=== PATIENT | male | born 1950 | race Caucasian/White ===

== ENCOUNTER 2024-12-28 07:18 | Inpatient (IN) ==
--- NOTE | 2024-12-28 07:41 | Emergency Department Note ---
Impression & Plan COPD exacerbation, Influenza A, Elevated troponin ED Provider Note NAME: LAKE UNGER AGE: 74 SEX: M : 1950 ARRIVES VIA: Walk-In INFORMANT: Patient ED PROVIDER(S): Cecilio Burris DO CHIEF COMPLAINT: Shortness of breath HPI: Patient is a 74-year-old male with a past medical history of asthma and COPD per who presents to the ER and provides additional history. Patient notes the symptoms started yesterday with cough congestion and shortness of breath. He has been bringing up green to yellow phlegm. Denies any recorded fevers. Admits to shortness of breath with any movement. Denies any chest pain. No belly pain. No nausea vomiting or diarrhea. He notes he is using his inhalers at home with no improvement. Denies any other exacerbating or remitting factors. No sick contacts that he is aware of. ADDITIONAL HISTORY OBTAINED: Per HPI Chronic Medical/Social Conditions Affecting Care: Per HPI PAST MEDICAL HISTORY:See Below PAST SURGICAL HISTORY:See Below FAMILY HISTORY:See Below SOCIAL HISTORY:See Below HOME MEDICATIONS:See Below ALLERGIES:See Below VITALS:See Below PHYSICAL EXAMINATION: GENERAL: Sitting up in bed, alert, well appearing, well nourished, no distress, non-toxic EYE EXAM: normal conjunctiva. OROPHARYNX: mucous membranes are moist LUNGS: Wheezing bilaterally with poor air movement. Normal chest wall mechanics HEART: no murmurs, S1 normal and S2 normal ABDOMEN: abdomen soft, non-tender, normo-active bowel sounds, no masses, no rebound or guarding. UPPER EXTREMITIES: upper extremities are grossly normal. LOWER EXTREMITIES: No pitting edema. Calves are equal bilaterally NEURO EXAM: Normal sensorium, cranial nerves II-XII grossly intact, normal speech, no gross weakness of arms, no gross weakness of legs. MEDICAL DECISION MAKING: The patient is a 74-year-old male who presents to the ER short of breath with a cough for the above-stated complaint. IV was established and blood work was obtained. He did have diffuse wheezing bilaterally. He was given hour-long neb treatment as well as IV steroids. Labs show no significant leukocytosis and a mild anemia. BMP along LFTs bilirubin is unremarkable. Troponin slightly uptrending. Flu a positive. Remainder viral panel was negative. Chest x-ray without any focal infiltrate. Patient was updated bedside. Do not feel this low troponins consistent with ACS but rather likely demand. He was updated bedside felt significant better following the neb treatments and discussed with case with the hospitalist for further evaluation management treatment. Consults/Care Managements Discussions: Per MDM Triage Nursing notes reviewed. Limited review of prior medical records performed Vital Signs: reviewed and remarkable for htn and tachy Differential diagnosis: Differential diagnoses includes but is not limited to pneumonia, bronchitis, COPD/Asthma exacerbation, pneumothorax, pulmonary embolism, congestive heart failure, acute coronary syndrome ER treatment provided: See below Diagnostics interpreted by me include EKG and cardiac monitoring as listed below: -Cardiac Monitoring: An order was placed for continuous cardiac monitoring. The monitor shows a rate of 101 with sinus rhythm. -ECG: Sinus tachycardia rate of 107 Normal axis Poor baseline QTc 475 -Laboratory studies:Interpreted by me as stated above in MDM and shown below. Imaging studies: Xrays: As interpreted by me: Portable AP upright 1 view of the chest shows no focal infiltrate CTs show: none Procedures:none Critical Care: None Past Med/Surg History Problem List (Updated 12/28/24 @ 12:36 by Cecilio Burris DO) Elevated troponin (Acute) COPD exacerbation (Acute) Influenza A (Acute) Benign localized prostatic hyperplasia with lower urinary tract symptoms (LUTS) Elevated PSA Encounter for pre-operative examination Carpal tunnel syndrome on both sides Arthritis of both hands Medical History Arthritis of both hands Asthma inhaler Chronic obstructive pulmonary disease inhaler Diabetes mellitus, type 2 NIDDM History of Holter monitoring 06/2022, no issues " just wanted to check", f/u PCP Dr. Whittaker, [facility] Hypertension Weight loss "unexplained weight loss of 40 pounds, investigating" Surgical History History of esophagogastroduodenoscopy (EGD) 08/2022 @ [facility] Hx of colonoscopy 08/2022 @ [facility] Hx of nasal polypectomy Family History Other No family history of adverse response to anesthesia Social History Smoking Status: Former smoker Second Hand Exposure: No; Do You Dip or Chew Tobacco: No; Hx Alcohol Use: Yes ("3-4 oz of a mixed drink a day") Alcohol type: hard liquor Hx Substance Use: No Preferred Language: Greenlandic Communication Ability: Effective [employer] Recausticizing Operator Required: No Beliefs That Will Affect Care: None Current Living Situation: Spouse Feels Safe at Home: Yes Assistive Devices: Denture - Upper and Glasses Allergies Allergies Allergy/AdvReac Type Severity Reaction Status Date / Time No Known Allergies Allergy Verified 12/28/24 10:19 Home Meds Home Medications Medication Instructions Recorded Confirmed fluticasone 250 mcg-salmeterol 50 1 inh inhalation BID 07/12/22 12/28/24 mcg/dose blistr powdr for inhalation (Advair Diskus) lisinopril 20 mg tablet 20 mg PO BID 06/11/23 12/28/24 amlodipine 10 mg tablet 10 mg PO QAM 12/28/24 12/28/24 atorvastatin 20 mg tablet 10 mg PO HS 12/28/24 12/28/24 ferrous sulfate 325 mg (65 mg 325 mg PO DAILY 12/28/24 12/28/24 iron) tablet glipizide 5 mg tablet, extended 5 mg PO QAM 12/28/24 12/28/24 release 24 hr metformin 500 mg tablet 500 mg PO BID 12/28/24 12/28/24 metoprolol succinate 50 mg 50 mg PO HS 12/28/24 12/28/24 tablet,extended release 24 hr multivitamin 1 tab PO DAILY 12/28/24 12/28/24 Results & Data (ED) Vital Signs Vital Signs - 24 hr 12/28/24 07:18 12/28/24 07:51 12/28/24 08:06 Temperature 37.0 C Temperature Source Temporal Artery Scan Pulse Rate 107 H 104 H 107 H Pulse Rate from SpO2 Sensor 105 H 107 H Respiratory Rate 18 18 21 Blood Pressure 169/98 H Blood Pressure Mean 121 Pulse Oximetry 92 99 100 Oxygen Delivery Method Room Air Sepsis Recent Fever Within 48 Hours No Sepsis New/Unexplained Change in Mental Status N/A Sepsis Action Taken by Nursing No Action Required 12/28/24 08:30 12/28/24 08:30 12/28/24 08:54 Temperature Temperature Source Pulse Rate 113 H 117 H Pulse Rate from SpO2 Sensor 113 H 120 H Respiratory Rate 24 Blood Pressure 157/88 H Blood Pressure Mean 99 Pulse Oximetry 98 93 Oxygen Delivery Method Sepsis Recent Fever Within 48 Hours Sepsis New/Unexplained Change in Mental Status Sepsis Action Taken by Nursing 12/28/24 09:00 12/28/24 09:12 12/28/24 09:27 Temperature Temperature Source Pulse Rate 108 H 115 H Pulse Rate from SpO2 Sensor 108 H 115 H Respiratory Rate 29 H 28 H Blood Pressure 148/92 H Blood Pressure Mean 112 Pulse Oximetry 92 94 Oxygen Delivery Method Room Air Sepsis Recent Fever Within 48 Hours Sepsis New/Unexplained Change in Mental Status Sepsis Action Taken by Nursing 12/28/24 09:30 12/28/24 09:36 12/28/24 10:00 Temperature Temperature Source Pulse Rate 109 H 107 H Pulse Rate from SpO2 Sensor 110 H 108 H Respiratory Rate 27 H 27 H Blood Pressure 149/93 H Blood Pressure Mean 107 Pulse Oximetry 94 94 Oxygen Delivery Method Room Air Room Air Sepsis Recent Fever Within 48 Hours Sepsis New/Unexplained Change in Mental Status Sepsis Action Taken by Nursing 12/28/24 10:00 12/28/24 10:18 12/28/24 10:30 Temperature Temperature Source Pulse Rate 112 H Pulse Rate from SpO2 Sensor 113 H Respiratory Rate 25 H Blood Pressure 152/88 H 142/91 H Blood Pressure Mean 107 106 Pulse Oximetry 97 Oxygen Delivery Method Room Air Sepsis Recent Fever Within 48 Hours Sepsis New/Unexplained Change in Mental Status Sepsis Action Taken by Nursing 12/28/24 10:33 12/28/24 10:33 12/28/24 11:00 Temperature Temperature Source Pulse Rate 110 H 106 H 118 H Pulse Rate from SpO2 Sensor 106 H 119 H Respiratory Rate 27 H 22 Blood Pressure Blood Pressure Mean Pulse Oximetry 95 98 Oxygen Delivery Method Room Air Room Air Sepsis Recent Fever Within 48 Hours Sepsis New/Unexplained Change in Mental Status Sepsis Action Taken by Nursing 12/28/24 11:00 Temperature Temperature Source Pulse Rate Pulse Rate from SpO2 Sensor Respiratory Rate Blood Pressure 155/108 H Blood Pressure Mean 122 Pulse Oximetry Oxygen Delivery Method Sepsis Recent Fever Within 48 Hours Sepsis New/Unexplained Change in Mental Status Sepsis Action Taken by Nursing Laboratory Data 12/28/24 07:40 12/28/24 07:40 Lab Results 12/28/24 12/28/24 12/28/24 Range/Units 07:39 07:40 09:24 WBC 5.87 (4.8-10.8) K/ul RBC 4.64 L (4.70-6.10) M/uL Hgb 13.6 L (14.0-18.0) g/dl Hct 39.8 L (42.0-52.0) % MCV 85.8 (80.0-100.0) fL MCH 29.3 (25.0-34.0) pg MCHC 34.2 (32.0-36.0) g/dL RDW Std Deviation 40.8 (36.4-46.3) fL RDW Coeff of Osmar 13.2 (11.5-14.5) % Plt Count 229 (130-400) K/uL MPV 10.0 (9.4-12.4) fL Immature Gran % (Auto) 0.5 % Neut % (Auto) 72.4 % Lymph % (Auto) 9.2 % [place] % (Auto) 16.9 % Eos % (Auto) 0.3 % Baso % (Auto) 0.7 % Neut # (Auto) 4.25 (1.40-6.50) K/uL Lymph # (Auto) 0.54 L (1.20-3.40) K/uL [place] # (Auto) 0.99 H (0.11-0.59) K/uL Eos # (Auto) 0.02 (0.00-0.50) K/uL Baso # (Auto) 0.04 (0.00-0.20) K/uL Immature Gran # (Auto) 0.03 (0.01-0.20) K/uL Sodium 137 (136-145) mmol/L Potassium 4.1 (3.5-5.1) mmol/L Chloride 102 (98-107) mmol/L Carbon Dioxide 26 (21-32) mmol/L Anion Gap 9 (3-11) BUN 20 (6-23) mg/dl Creatinine 1.24 (0.6-1.4) mg/dl Est Cr Clr Drug Dosing 48.1 ml/min eGFR 61.39 BUN/Creatinine Ratio 16.1 (10-20) Glucose 245 H (70-99(Fasting)) mg/dl Calcium 9.5 (8.6-10.3) mg/dl Total Bilirubin 0.4 (0.2-1.0) mg/dl AST 31 (13-39) U/L ALT 22 (7-52) U/L Alkaline Phosphatase 112 H (34-104) U/L Troponin I High Sens 27.8 H 33.2 H (0-20) pg/ml Total Protein 7.6 (6.0-8.3) gm/dl Albumin 3.7 (3.4-5.0) gm/dl Globulin 3.9 (2.5-4.0) gm/dl Albumin/Globulin Ratio 0.9 (0.9-2) Lipase 32 (11-82) U/L Nasal Influ A H1 2008 PCR DETECTED A (NotDetected) Adenovirus (PCR) Not Detected (NotDetected) B. pertussis DNA (PCR) Not Detected (NotDetected) B.parapertussis DNA PCR Not Detected (NotDetected) C. pneumoniae DNA (PCR) Not Detected (NotDetected) Coronavirus OC43 (PCR) Not Detected (NotDetected) Coronavirus HKU1 (PCR) Not Detected (NotDetected) Coronavirus 229E (PCR) Not Detected (NotDetected) SARS-CoV-2 (PCR) Not Detected (NotDetected) Coronavirus NL63 (PCR) Not Detected (NotDetected) Human Metapneumovir PCR Not Detected (NotDetected) Influenza Type B (PCR) Not Detected (NotDetected) M. pneumoniae (PCR) Not Detected (NotDetected) Parainfluenza 1 (PCR) Not Detected (NotDetected) Parainfluenza 2 (PCR) Not Detected (NotDetected) Parainfluenza 3 (PCR) Not Detected (NotDetected) Parainfluenza 4 (PCR) Not Detected (NotDetected) RSV (PCR) Not Detected (NotDetected) Entero/Rhino (PCR) Not Detected (NotDetected) Administered Medications Discontinued Medications Albuterol (Albut/Ipratrop 3mg/0.5mg Neb 3 Ml Vial) 9 ml NEB NOW STA; Protocol Stop: 12/28/24 07:39 Last Admin: 12/28/24 07:46 Dose: 9 ml Documented By: TOMMIE Methylprednisolone (Methylprednisolone 125 Mg/2 Ml Vial) 40 mg IV NOW STA Stop: 12/28/24 07:39 Last Admin: 12/28/24 07:46 Dose: 40 mg Documented By: TOMMIE Imaging Data Radiologist's Impression: Chest X-Ray 12/28/24 07:38 EXAM: XR chest 1V portable CLINICAL HISTORY: CHEST PAIN. TECHNIQUE: An X-ray image of the chest is obtained in AP projection. COMPARISON: No prior studies are available for comparison. FINDINGS: Pulmonary Parenchyma: Slightly hyperinflated both lungs with flattening of both hemidiaphragm suggesting mild emphysematous changes. Bilateral basal increase interstitial lung markings suggest chronic lung changes. Left apical haziness which may be positional. No evidence of consolidation, collapse, or focal opacities. No pulmonary nodules are identified. No evidence of pleural effusion or pleural thickening. Heart and Mediastinum: Heart size and shape are normal. No mediastinal widening or masses. No hilar or mediastinal lymphadenopathy. Bony Thorax: Bony thorax appears intact without fractures or deformities. Soft Tissues: Soft tissues overlying the chest wall are unremarkable. IMPRESSION: 1. Slightly hyperinflated both lung with flattening of both hemidiaphragm suggesting mild emphysematous changes. 2. Bilateral mainly basal increase interstitial lung markings suggesting chronic lung changes., Advise CT for further evaluation if clinically warranted. Electronically signed by Elvira Sabillon 12-28-2024 08:55 AM Discharge Plan Visit Data Chief Complaint: Respiratory Problems Stated Complaint: CAN'T BREATHE,COUGHING ED Provider: Cecilio Burris Discharge Problem: COPD exacerbation, Influenza A, Elevated troponin Forms Stand Alone Forms: My [facility] [place] [facility] Prescriptions Prescriptions: No Action fluticasone propion-salmeterol [Advair Diskus] 250-50 mcg/dose Blister With Device 1 inh INHALATION BID lisinopril 20 mg Tablet 20 mg PO BID multivitamin Tablet 1 tab PO DAILY metformin 500 mg tablet 500 mg PO BID atorvastatin 20 mg tablet 10 mg PO HS metoprolol succinate 50 mg tablet extended release 24 hr 50 mg PO HS Rx Instructions: Per pt he recently started taking it only at bedtime. glipizide 5 mg tablet extended release 24hr 5 mg PO QAM amlodipine 10 mg tablet 10 mg PO QAM ferrous sulfate 325 mg (65 mg iron) Tablet 325 mg PO DAILY Referrals Referrals: Gali Whittaker [Primary Care Provider] -
[2024-12-28] MEDS: ALBUT/IPRATROP 3MG/0.5MG NEB 3 ML VIAL NEB STA (07:46)
[2024-12-28] MEDS: methylPREDNISolone 125 MG/2 ML VIAL IV STA (07:46)
[2024-12-28 07:57] LABS: Basophils # (auto) 0.04 K/uL (0.00-0.20); Basophils % (auto) 0.7 %; Eosinophils # (auto) 0.02 K/uL (0.00-0.50); Eosinophils % (auto) 0.3 %; Hematocrit (blood only) 39.8 % (42.0-52.0); Hemoglobin 13.6 g/dl (14.0-18.0); Immature Granulocytes # (auto) 0.03 K/uL (0.01-0.20); Immature Granulocytes % (auto) 0.5 %; Lymphocytes # (auto) 0.54 K/uL (1.20-3.40); Lymphocytes % (auto) 9.2 %; Mean Corpuscular Hemoglobin 29.3 pg (25.0-34.0); Mean Corpuscular Hgb Conc 34.2 g/dL (32.0-36.0); Mean Corpuscular Volume 85.8 fL (80.0-100.0); Monocytes # (auto) 0.99 K/uL (0.11-0.59); Monocytes % (auto) 16.9 %; Neutrophils # (auto) 4.25 K/uL (1.40-6.50); Neutrophils % (auto) 72.4 %; Platelet Count 229 K/uL (130-400); RDW Coefficient of Variation 13.2 % (11.5-14.5); RDW Standard Deviation 40.8 fL (36.4-46.3); Red Blood Count 4.64 M/uL (4.70-6.10); White Blood Count 5.87 K/ul (4.8-10.8)
[2024-12-28 08:23] LABS: Albumin Globulin Ratio 0.9 (0.9-2); Albumin Level 3.7 gm/dl (3.4-5.0); BUN Creatinine Ratio 16.1 (10-20); Bilirubin,Total 0.4 mg/dl (0.2-1.0); Calcium 9.5 mg/dl (8.6-10.3); Creatinine Clr Calc Pharmacy 48.1 ml/min; Globulin 3.9 gm/dl (2.5-4.0); Potassium 4.1 mmol/L (3.5-5.1); Total Protein 7.6 gm/dl (6.0-8.3)
[2024-12-28 08:28] LABS: Troponin I High Sensitivity 27.8 pg/ml (0-20)
[2024-12-28 08:47] LABS: Adenovirus PCR Not Detected (NotDetected); Bordetella parapertussis PCR Not Detected (NotDetected); Bordetella pertussis PCR Not Detected (NotDetected); Chlamydia pneumoniae PCR Not Detected (NotDetected); Coronavirus 229E PCR Not Detected (NotDetected); Coronavirus CoV-2 (COVID19)PCR Not Detected (NotDetected); Coronavirus HKU1 PCR Not Detected (NotDetected); Coronavirus NL63 PCR Not Detected (NotDetected); Coronavirus OC43PCR Not Detected (NotDetected); Human Metapneumovirus PCR Not Detected (NotDetected); Influenza A (H1 2009) PCR DETECTED (NotDetected); Influenza B PCR Not Detected (NotDetected); Mycoplasma pneumoniae PCR Not Detected (NotDetected); Parainfluenza Virus 1 PCR Not Detected (NotDetected); Parainfluenza Virus 2 PCR Not Detected (NotDetected); Parainfluenza Virus 3 PCR Not Detected (NotDetected); Parainfluenza Virus 4 PCR Not Detected (NotDetected); Respiratory Syncytial VirusPCR Not Detected (NotDetected); Rhinovirus/Enterovirus PCR Not Detected (NotDetected)
--- NOTE | 2024-12-28 08:55 | XRay Report ---
EXAM: XR chest 1V portable CLINICAL HISTORY: CHEST PAIN. TECHNIQUE: An X-ray image of the chest is obtained in AP projection. COMPARISON: No prior studies are available for comparison. FINDINGS: Pulmonary Parenchyma: Slightly hyperinflated both lungs with flattening of both hemidiaphragm suggesting mild emphysematous changes. Bilateral basal increase interstitial lung markings suggest chronic lung changes. Left apical haziness which may be positional. No evidence of consolidation, collapse, or focal opacities. No pulmonary nodules are identified. No evidence of pleural effusion or pleural thickening. Heart and Mediastinum: Heart size and shape are normal. No mediastinal widening or masses. No hilar or mediastinal lymphadenopathy. Bony Thorax: Bony thorax appears intact without fractures or deformities. Soft Tissues: Soft tissues overlying the chest wall are unremarkable. IMPRESSION: 1. Slightly hyperinflated both lung with flattening of both hemidiaphragm suggesting mild emphysematous changes. 2. Bilateral mainly basal increase interstitial lung markings suggesting chronic lung changes., Advise CT for further evaluation if clinically warranted. Electronically signed by Elvira Sabillon 12-28-2024 08:55 AM
--- NOTE | 2024-12-28 11:20 | History & Physical Report ---
Date of Service December 28, 2024 Assessment & Plan (1) Diabetes mellitus, type 2: (2) Hypertension: (3) Chronic obstructive pulmonary disease: (4) Influenza A: (5) COPD exacerbation: Plan The patient is a 74-year-old male with a past medical history of COPD, asthma, HTN, HLD, DM2 who presented to the ED on 12/28/2024 with complaints of shortness of breath x 2 days. Found to be flu A positive Assessment and plan: Influenza A COPD vs. asthma exacerbation: Chest x-ray without any evidence of pneumonia, check procalcitonin Initiate Tamiflu, continue IV Solu-Medrol twice a day, nebulizers as needed Symptomatic treatment, continue home Advair -Will add doxy orally with hx of COPD Hx HTN/HLD: Continue amlodipine/lisinopril/statin/metoprolol Hx DM2: Hold metformin/glipizide, SSI/consult glycemic pharmacy Expect sugars to be elevated while on IV Solu-Medrol A total of 60 minutes was spent on chart review/facilitating plan of care/discussion with consultants/reviewing diagnostic data Full code DVT prophylaxis: lovenox History of Present Illness Chief Complaint: Shortness of breath, flulike symptoms Primary Care Provider: aGli Whittaker The patient is a 74-year-old male with a past medical history of COPD, asthma HT N, HLD, PAWAN, DM2 who presents to the ED on 12/28/2024 with complaints of increasing shortness of breath that started about 2 days ago. Reports home meds not helping. Reported issues being able to sleep and eat. Pt reports the dry cough and SOB started yesterday. Denies fevers - reports chills. Reports sob even with rest. Denies any chest pain or tightness. Denies n/v/d or abdominal pain. Reports using rescue inhalers at home since yesterday with no improvement. 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 Reports not eating anything over the past few days due to lack of appetite. On arrival to the ED, labs remarkable for hemoglobin 13.6, glucose 245, alk phos 112, troponin 27, 33, Respiratory panel + flu A EKG showed sinus tachycardia with fusion complexes, QTc 475 Chest x-ray showed: 1. Slightly hyperinflated both lung with flattening of both hemidiaphragm suggesting mild emphysematous changes. 2. Bilateral mainly basal increase interstitial lung markings suggesting chronic lung changes., Advise CT for further evaluation if clinically warranted. The patient was given Solu-Medrol and nebulizer in the ED and will be admitted for further management of COPD exacerbation influenza A Allergies Allergy/AdvReac Type Severity Reaction Status Date / Time No Known Allergies Allergy Verified 12/28/24 10:19 Home Medications Medication Instructions Recorded Confirmed Type fluticasone 250 mcg-salmeterol 50 1 inh inhalation BID 07/12/22 12/28/24 History mcg/dose blistr powdr for inhalation (Advair Diskus) lisinopril 20 mg tablet 20 mg PO BID 06/11/23 12/28/24 History amlodipine 10 mg tablet 10 mg PO QAM 12/28/24 12/28/24 History atorvastatin 20 mg tablet 10 mg PO HS 12/28/24 12/28/24 History ferrous sulfate 325 mg (65 mg 325 mg PO DAILY 12/28/24 12/28/24 History iron) tablet glipizide 5 mg tablet, extended 5 mg PO QAM 12/28/24 12/28/24 History release 24 hr metformin 500 mg tablet 500 mg PO BID 12/28/24 12/28/24 History metoprolol succinate 50 mg 50 mg PO HS 12/28/24 12/28/24 History tablet,extended release 24 hr multivitamin 1 tab PO DAILY 12/28/24 12/28/24 History Past Med/Surg History Problem List (Updated 12/28/24 @ 12:36 by Cecilio Burris DO) Elevated troponin (Acute) COPD exacerbation (Acute) Influenza A (Acute) Benign localized prostatic hyperplasia with lower urinary tract symptoms (LUTS) Elevated PSA Encounter for pre-operative examination Carpal tunnel syndrome on both sides Arthritis of both hands Medical History Arthritis of both hands Asthma inhaler Chronic obstructive pulmonary disease inhaler Diabetes mellitus, type 2 NIDDM History of Holter monitoring 06/2022, no issues "dr perez wanted to check", f/u PCP Dr. Whittaker, [facility] Hypertension Weight loss "unexplained weight loss of 40 pounds, investigating" Surgical History History of esophagogastroduodenoscopy (EGD) 08/2022 @ [facility] Hx of colonoscopy 08/2022 @ [facility] Hx of nasal polypectomy Family History Other No family history of adverse response to anesthesia Social History Smoking Status: Former smoker Second Hand Exposure: No; Do You Dip or Chew Tobacco: No; Hx Alcohol Use: Yes ("3-4 oz of a mixed drink a day") Alcohol type: hard liquor Hx Substance Use: No Preferred Language: Uzbek Communication Ability: Effective Job Molder Required: No Beliefs That Will Affect Care: None Current Living Situation: Spouse Feels Safe at Home: Yes Assistive Devices: Denture - Upper and Glasses Review of Systems Review of Systems: All systems reviewed & are unremarkable except as noted in HPI & below Physical Exam Constitutional: WD/WN, vitals as above Eyes: PERRL, conjunctivae normal, anicteric sclerae ENMT: external ear and nose normal, oropharynx normal Neck: trachea midline, no thyromegaly Respiratory: normal respiratory effort, lungs clear to auscultation (no wheezing on exam, clear bilaterally ) Cardiovascular: RRR, no murmur, no edema Gastrointestinal (Abdomen): normal bowel sounds, soft, nontender, no hepatosplenomegaly Musculoskeletal: no cyanosis or clubbing, extremities motor strength 5/5 Skin: no rashes, warm and dry Neurologic: PERRL, EOMI, accommodation nl, no face palsy, no dysarthria Psychiatric: A+Ox3, euthymic affect Lymphatic: no cervical or axillary lymphadenopathy Results & Data Results & Data Vital Signs (Past 12 Hours) Vital Signs Temp Pulse Resp BP Pulse Ox O2 Del Method 12/28/24 11:00 155/108 H 12/28/24 11:00 118 H 22 98 Room Air 12/28/24 10:33 106 H 27 H 95 Room Air 12/28/24 10:33 110 H 12/28/24 10:30 142/91 H 12/28/24 10:18 112 H 25 H 97 Room Air 12/28/24 10:00 152/88 H 12/28/24 10:00 107 H 27 H 94 Room Air 12/28/24 09:36 109 H 27 H 94 Room Air 12/28/24 09:30 149/93 H 12/28/24 09:27 115 H 28 H 94 Room Air 12/28/24 09:12 108 H 29 H 92 12/28/24 09:00 148/92 H 12/28/24 08:54 117 H 24 93 12/28/24 08:30 157/88 H 12/28/24 08:30 113 H 98 12/28/24 08:06 107 H 21 100 12/28/24 07:51 104 H 18 99 12/28/24 07:18 37.0 C 107 H 18 169/98 H 92 Room Air Diagnostic Findings Laboratory Results WBC 5.87 K/ul (4.8-10.8) 12/28/24 07:40 RBC 4.64 M/uL (4.70-6.10) L 12/28/24 07:40 Hgb 13.6 g/dl (14.0-18.0) L 12/28/24 07:40 Hct 39.8 % (42.0-52.0) L 12/28/24 07:40 MCV 85.8 fL (80.0-100.0) 12/28/24 07:40 MCH 29.3 pg (25.0-34.0) 12/28/24 07:40 MCHC 34.2 g/dL (32.0-36.0) 12/28/24 07:40 RDW Std Deviation 40.8 fL (36.4-46.3) 12/28/24 07:40 RDW Coeff of Osmar 13.2 % (11.5-14.5) 12/28/24 07:40 Plt Count 229 K/uL (130-400) 12/28/24 07:40 MPV 10.0 fL (9.4-12.4) 12/28/24 07:40 Immature Gran % (Auto) 0.5 % 12/28/24 07:40 Neut % (Auto) 72.4 % 12/28/24 07:40 Lymph % (Auto) 9.2 % 12/28/24 07:40 [place] % (Auto) 16.9 % 12/28/24 07:40 Eos % (Auto) 0.3 % 12/28/24 07:40 Baso % (Auto) 0.7 % 12/28/24 07:40 Neut # (Auto) 4.25 K/uL (1.40-6.50) 12/28/24 07:40 Lymph # (Auto) 0.54 K/uL (1.20-3.40) L 12/28/24 07:40 [place] # (Auto) 0.99 K/uL (0.11-0.59) H 12/28/24 07:40 Eos # (Auto) 0.02 K/uL (0.00-0.50) 12/28/24 07:40 Baso # (Auto) 0.04 K/uL (0.00-0.20) 12/28/24 07:40 Immature Gran # (Auto) 0.03 K/uL (0.01-0.20) 12/28/24 07:40 Sodium 137 mmol/L (136-145) 12/28/24 07:40 Potassium 4.1 mmol/L (3.5-5.1) 12/28/24 07:40 Chloride 102 mmol/L (98-107) 12/28/24 07:40 Carbon Dioxide 26 mmol/L (21-32) 12/28/24 07:40 Anion Gap 9 (3-11) 12/28/24 07:40 BUN 20 mg/dl (6-23) 12/28/24 07:40 Creatinine 1.24 mg/dl (0.6-1.4) 12/28/24 07:40 Est Cr Clr Drug Dosing 48.1 ml/min 12/28/24 07:40 eGFR 61.39 12/28/24 07:40 BUN/Creatinine Ratio 16.1 (10-20) 12/28/24 07:40 Glucose 245 mg/dl (70-99(Fasting)) H 12/28/24 07:40 Calcium 9.5 mg/dl (8.6-10.3) 12/28/24 07:40 Total Bilirubin 0.4 mg/dl (0.2-1.0) 12/28/24 07:40 AST 31 U/L (13-39) 12/28/24 07:40 ALT 22 U/L (7-52) 12/28/24 07:40 Alkaline Phosphatase 112 U/L (34-104) H 12/28/24 07:40 Troponin I High Sens 33.2 pg/ml (0-20) H 12/28/24 09:24 Total Protein 7.6 gm/dl (6.0-8.3) 12/28/24 07:40 Albumin 3.7 gm/dl (3.4-5.0) 12/28/24 07:40 Globulin 3.9 gm/dl (2.5-4.0) 12/28/24 07:40 Albumin/Globulin Ratio 0.9 (0.9-2) 12/28/24 07:40 Lipase 32 U/L (11-82) 12/28/24 07:40 Nasal Influ A H1 2009 PCR DETECTED (NotDetected) A 12/28/24 07:39 Adenovirus (PCR) Not Detected (NotDetected) 12/28/24 07:39 B. pertussis DNA (PCR) Not Detected (NotDetected) 12/28/24 07:39 B.parapertussis DNA PCR Not Detected (NotDetected) 12/28/24 07:39 C. pneumoniae DNA (PCR) Not Detected (NotDetected) 12/28/24 07:39 Coronavirus OC43 (PCR) Not Detected (NotDetected) 12/28/24 07:39 Coronavirus HKU1 (PCR) Not Detected (NotDetected) 12/28/24 07:39 Coronavirus 229E (PCR) Not Detected (NotDetected) 12/28/24 07:39 SARS-CoV-2 (PCR) Not Detected (NotDetected) 12/28/24 07:39 Coronavirus NL63 (PCR) Not Detected (NotDetected) 12/28/24 07:39 Human Metapneumovir PCR Not Detected (NotDetected) 12/28/24 07:39 Influenza Type B (PCR) Not Detected (NotDetected) 12/28/24 07:39 M. pneumoniae (PCR) Not Detected (NotDetected) 12/28/24 07:39 Parainfluenza 1 (PCR) Not Detected (NotDetected) 12/28/24 07:39 Parainfluenza 2 (PCR) Not Detected (NotDetected) 12/28/24 07:39 Parainfluenza 3 (PCR) Not Detected (NotDetected) 12/28/24 07:39 Parainfluenza 4 (PCR) Not Detected (NotDetected) 12/28/24 07:39 RSV (PCR) Not Detected (NotDetected) 12/28/24 07:39 Entero/Rhino (PCR) Not Detected (NotDetected) 12/28/24 07:39 Impressions Chest X-Ray 12/28/24 07:38 EXAM: XR chest 1V portable CLINICAL HISTORY: CHEST PAIN. TECHNIQUE: An X-ray image of the chest is obtained in AP projection. COMPARISON: No prior studies are available for comparison. FINDINGS: Pulmonary Parenchyma: Slightly hyperinflated both lungs with flattening of both hemidiaphragm suggesting mild emphysematous changes. Bilateral basal increase interstitial lung markings suggest chronic lung changes. Left apical haziness which may be positional. No evidence of consolidation, collapse, or focal opacities. No pulmonary nodules are identified. No evidence of pleural effusion or pleural thickening. Heart and Mediastinum: Heart size and shape are normal. No mediastinal widening or masses. No hilar or mediastinal lymphadenopathy. Bony Thorax: Bony thorax appears intact without fractures or deformities. Soft Tissues: Soft tissues overlying the chest wall are unremarkable. IMPRESSION: 1. Slightly hyperinflated both lung with flattening of both hemidiaphragm suggesting mild emphysematous changes. 2. Bilateral mainly basal increase interstitial lung markings suggesting chronic lung changes., Advise CT for further evaluation if clinically warranted. Electronically signed by Elvira Sabillon 12-28-2024 08:55 AM Supervising Physician Co-Signing Physician Notes Patient is a 74-year-old male with history of COPD, asthma, diabetes mellitus, hypertension and other medical problems presents with history of worsening shortness of breath associated with cough since 2 days duration. Patient denies any chest pain, tightness, fever, chills, nausea, vomiting, abdominal pain, diarrhea. Patient uses maintenance inhaler regularly. He admits to use his rescue inhaler more frequently over the past 2 days which did not help with his symptoms. He also reports wheezing. Please review HPI for complete details of presentation. I personally reviewed blood work and imaging studies. Troponins mildly elevated 27.8, 32.2. Procalcitonin pending. BioFire positive for influenza A. Chest x-ray suggestive of emphysematous changes, increased interstitial lung markings but no obvious signs of pneumonia. Physical Exam: Vitals signs as noted above General Appearance:Moderately built and nourished, no apparent distress Head: normocephalic, Atraumatic Eyes: normal inspection, EOMI Neck: supple, Trachea midline Respiratory/Chest: Normal breath sounds, scant wheezing, No accessory muscle use Cardiovascular: S1, S2, No murmur, tachycardia Abdomen/GI:Soft, Non tender, Bowel sounds present Extremities/Musculoskeletal:normal inspection, no edema Neurologic/Psych:AAOX3, grossly no focal neurological deficits Skin: normal color, warm Acute asthma/COPD exacerbation Secondary to influenza A infection Agree with IV Solu-Medrol, nebs, doxycycline Saturating well on room air Also started Tamiflu Hypertensive urgency Missed home medications on presentation Resume home antihypertensives Monitor BP and adjust medications as needed Troponin elevation Likely demand ischemia secondary to above Monitor I personally interviewed and examined the patient at bedside. I have reviewed the advanced practitioner's documentation on the date of service referred in note and agree with plan. Patient's care is coordinated with Grace ALCOCER. Please refer to the documentation above for details of patient's presentation and for discussion of other issues. I spent a total [id number] oordinating, documenting, and providing care for this patient excluding time spent in the performance of separately billed services or time spent by another provider/QHP.
--- NOTE | 2024-12-28 11:43 | Electrocardiogram Report ---
Test Reason : Blood Pressure : */* mmHG Vent. Rate : 107 BPM Atrial Rate : 107 BPM P-R Int : 168 ms QRS Dur : 88 ms QT Int : 356 ms P-R-T Axes : 84 51 85 degrees QTcB Int : 475 ms Poor data quality, interpretation may be adversely affected Sinus tachycardia Septal infarct , age undetermined Abnormal ECG No previous ECGs available Confirmed by Jay Graves ([id number]) on 12/28/2024 11:43:33 AM Referred By: Confirmed By: Jay Graves
[2024-12-28] MEDS ORDERED: amLODIPine BESYLATE 5 MG TAB PO SCH (12:15)
[2024-12-28] MEDS ORDERED: GLUCAGON FOR INJ 1 MG VIAL SQ PRN (14:23)
[2024-12-28] MEDS ORDERED: PHARMACY GLYCEMIC MGMT CONSULT PRN (14:23)
[2024-12-28] MEDS ORDERED: CARBOHYDRATES FOR HYPOGLYCEMIA PO PRN (14:23)
[2024-12-28] MEDS ORDERED: GLUCOSE 10 TAB/TUBE PO PRN (14:23)
[2024-12-28] MEDS ORDERED: guaiFENesin/DEXTROM SYRUP 200MG/20MG 10ML UDC PO PRN (14:23)
[2024-12-28] MEDS ORDERED: ACETAMINOPHEN 325 MG TAB PO PRN (14:23)
[2024-12-28] MEDS ORDERED: DEXTROSE 50% 50 ML SYRINGE IV PRN (14:23)
[2024-12-28] MEDS ORDERED: GLUCOSE 40% GEL 15 GM TUBE PO PRN (14:23)
--- NOTE | 2024-12-28 14:39 | Pharmacy Report ---
Pharmacy Glycemic Short Note 2 - Date of Service December 28, 2024 - Glycemic Short BSG Results (Last 24 hours): 12/28/24 07:40 Glucose 245 H OUTPATIENT ANTIDIABETIC REGIMEN: * glipizide 5mg PO daily * metformin 500mg PO BID HbA1C:____ ASSESSMENT: * Pt is a 74 YOM admitted with COPD v. asthma exacerbation in setting of influenza A. History of DM2 on PO meds outpatient. Pharmacy consulted to assist with inpatient glycemic management. * BSG 245mg/dL this AM, repeat BSG 399mg/dl this afternoon. Received methylprednisolone 40mg IV in the ED and continued on 40mg IV BID. Diet ordered. * Will initiate Novolog ACHS mod-severe stress scale. Lantus 12 units SQ X 1 now and reassess basal in AM. PLAN FOR INPATIENT GLYCEMIC CONTROL: * Hold outpatient oral diabetes medications * Basal insulin * Lantus 12 units SQ X 1 * Bolus insulin * NovoLog per scale ACHS or Q6hrs while NPO * Goal Range: Low 110 mg/dL - High 140 mg/dL * Correction Factor: 30 mg/dL/unit * Nutritional / Prandial insulin per carb ratio of 1 unit per 11 grams CHO consumed
[2024-12-28] MEDS: LEVALBUTEROL HCL 0.63 MG/3 ML NEB NEB SCH (15:28)
[2024-12-28] MEDS: INSULIN ASPART PER UNIT CHARGE SC SCH (16:01)
[2024-12-28] MEDS: LANTUS PER UNIT CHARGE SC ONE (16:01)
[2024-12-28] MEDS: PNEUMOCOCCAL VACCINE (PCV20) 20-VAL CONJ-DIP CRM/PF 0.5 ML SYR IM ONE (16:02)
[2024-12-28] MEDS: amLODIPine BESYLATE 5 MG TAB PO SCH (17:56)
[2024-12-28 18:20] LABS: BUN Creatinine Ratio 20.3 (10-20); Calcium 8.5 mg/dl (8.6-10.3); Creatinine Clr Calc Pharmacy 36.4 ml/min; Potassium 3.7 mmol/L (3.5-5.1); Troponin I High Sensitivity 39.1 pg/ml (0-20)
[2024-12-28] MEDS: lisinopril 20 MG TAB PO SCH (21:20)
[2024-12-28] MEDS: METOPROLOL SUCC 50MG EXT REL TAB PO SCH (21:21)
[2024-12-28] MEDS: ATORVASTATIN 10 MG TAB PO SCH (21:21)
[2024-12-28] MEDS: DOXYCYCLINE HYCLATE 100 MG CAP PO SCH (21:22)
[2024-12-28] MEDS: OSELTAMIVIR PHOSPHATE 75 MG CAP PO SCH (21:25)
[2024-12-29] MEDS: INSULIN ASPART PER UNIT CHARGE SC SCH (00:24)
[2024-12-29 07:08] LABS: Basophils # (auto) 0.01 K/uL (0.00-0.20); Basophils % (auto) 0.1 %; Hematocrit (blood only) 35.7 % (42.0-52.0); Hemoglobin 12.2 g/dl (14.0-18.0); Immature Granulocytes # (auto) 0.03 K/uL (0.01-0.20); Immature Granulocytes % (auto) 0.4 %; Lymphocytes # (auto) 0.88 K/uL (1.20-3.40); Lymphocytes % (auto) 10.4 %; Mean Corpuscular Hemoglobin 29.2 pg (25.0-34.0); Mean Corpuscular Hgb Conc 34.2 g/dL (32.0-36.0); Mean Corpuscular Volume 85.4 fL (80.0-100.0); Mean Platelet Volume 10.4 fL (9.4-12.4); Monocytes # (auto) 1.22 K/uL (0.11-0.59); Monocytes % (auto) 14.4 %; Neutrophils # (auto) 6.31 K/uL (1.40-6.50); Neutrophils % (auto) 74.7 %; Platelet Count 225 K/uL (130-400); RDW Coefficient of Variation 13.2 % (11.5-14.5); Red Blood Count 4.18 M/uL (4.70-6.10); White Blood Count 8.45 K/ul (4.8-10.8)
[2024-12-29 07:26] LABS: Albumin Globulin Ratio 0.9 (0.9-2); Albumin Level 3.1 gm/dl (3.4-5.0); BUN Creatinine Ratio 25.2 (10-20); Bilirubin,Total 0.3 mg/dl (0.2-1.0); Calcium 8.8 mg/dl (8.6-10.3); Creatinine Clr Calc Pharmacy 42.1 ml/min; Globulin 3.3 gm/dl (2.5-4.0); Magnesium 1.8 mg/dl (1.7-2.4); Potassium 3.7 mmol/L (3.5-5.1); Total Protein 6.4 gm/dl (6.0-8.3)
[2024-12-29] MEDS: MULTIVITAMIN TAB PO SCH (07:58)
[2024-12-29] MEDS: FERROUS SULFATE 325 MG TAB PO SCH (07:58)
[2024-12-29] MEDS: ENOXAPARIN INJ 40 MG/0.4 ML SYR SQ SCH (08:02)
[2024-12-29 08:44] LABS: Estimated Average Glucose 177 mg/dl; Hemoglobin A1C 7.8 % (4.5-5.6)
[2024-12-29] MEDS ORDERED: amLODIPine BESYLATE 5 MG TAB PO SCH (09:00)
[2024-12-29] MEDS ORDERED: methylPREDNISolone 125 MG/2 ML VIAL IV SCH (09:00)
--- NOTE | 2024-12-29 09:59 | Pharmacy Report ---
Pharmacy Glycemic Short Note 2 - Date of Service December 29, 2024 - Glycemic Short BSG Results (Last 24 hours): 12/28/24 12/28/24 12/28/24 15:15 15:18 16:59 Glucose POC Glucose 399 H* 463 H* 404 H* 12/28/24 12/28/24 12/28/24 17:02 17:18 17:26 Glucose 341 H* Cancelled POC Glucose 361 H* 12/28/24 12/29/24 12/29/24 20:09 00:07 03:36 Glucose POC Glucose 172 H 73 73 12/29/24 12/29/24 06:34 07:59 Glucose 72 POC Glucose 78 OUTPATIENT ANTIDIABETIC REGIMEN: * glipizide 5mg PO daily * metformin 500mg PO BID HbA1C: 7.8% (12/29/24) ASSESSMENT: 12/29/24: * Blood sugars trended down significantly throughout the day yesterday * Likely some degree of Novolog accumulation (11 units at 1601 and 13 units at 1755) * Blood sugars have been quite low overnight into this morning (73-78 mg/dL) * Continuing on methylprednisolone 40 mg IV BID * Despite this, will d/c basal insulin this morning and slightly loosen Novolog based on overall BSG trend 12/28/24: * Pt is a 74 YOM admitted with COPD v. asthma exacerbation in setting of influenza A. History of DM2 on PO meds outpatient. Pharmacy consulted to assist with inpatient glycemic management. * BSG 245mg/dL this AM, repeat BSG 399mg/dl this afternoon. Received methylprednisolone 40mg IV in the ED and continued on 40mg IV BID. Diet ordered. * Will initiate Novolog ACHS mod-severe stress scale. Lantus 12 units SQ X 1 now and reassess basal in AM. PLAN FOR INPATIENT GLYCEMIC CONTROL: * Hold outpatient oral diabetes medications * Basal insulin * Lantus 0-5-10 units SC HS (see EHR for details) * Bolus insulin * NovoLog per scale ACHS or Q6hrs while NPO * Goal Range: Low 110 mg/dL - High 140 mg/dL * Correction Factor: 35 mg/dL/unit * Nutritional / Prandial insulin per carb ratio of 1 unit per 12 grams CHO consumed
[2024-12-29] MEDS: methylPREDNISolone 40 MG in SYRINGE 0 ML IV SCH (10:20)
[2024-12-29] MEDS: FLUTICASONE/VILANTEROL 200/25MCG 14 PUFFS/INHALER INH SCH (12:27)
--- NOTE | 2024-12-29 12:54 | Electrocardiogram Report ---
Test Reason : Blood Pressure : */* mmHG Vent. Rate : 87 BPM Atrial Rate : 87 BPM P-R Int : 158 ms QRS Dur : 100 ms QT Int : 394 ms P-R-T Axes : 62 81 75 degrees QTcB Int : 474 ms Normal sinus rhythm Septal infarct (cited on or before 28-Dec-2024) Abnormal ECG When compared with ECG of 28-Dec-2024 07:37, No significant change Confirmed by Jay Graves ([id number]) on 12/29/2024 12:54:32 PM Referred By: REFERRED SELF Confirmed By: aJy Graves
--- NOTE | 2024-12-29 13:38 | Hospitalist Progress Note ---
Date of Service December 29, 2024 Assessment & Plan (1) Diabetes mellitus, type 2: (2) Hypertension: (3) Chronic obstructive pulmonary disease: (4) Influenza A: (5) COPD exacerbation: Plan 74-year-old male with a PMH of COPD, asthma, HTN, HLD, DM2 who presented to the ED on 12/28/2024 with complaints of shortness of breath x 2 days. Found to be flu A positive. He is being managed for the following: Influenza A COPD vs. asthma exacerbation: Chest x-ray without any evidence of pneumonia, neg procalcitonin c/w Tamiflu, continue IV Solu-Medrol twice a day -- to PO taper from rufino, nebulizers as needed Symptomatic treatment, continue home Advair -c/w add doxy orally. Hx HTN/HLD: Continue amlodipine/lisinopril/statin/metoprolol Hx DM2: Hold metformin/glipizide, SSI/consult glycemic pharmacy Expect sugars to be elevated while on IV Solu-Medrol Full code DVT prophylaxis: lovenox Admission and Anticipated Discharge Date Admission Date: December 28, 2024 Subjective Patient was seen and examined at bedside. Patient was lying in bed, on room air, NAD, resting comfortably. Patient reports improving cough, with yellowish sputum. Patient still feels congested and is needing nebulization. Patient otherwise reports feeling better. Physical Exam Physical Exam: General Appearance:Moderately built and nourished, no apparent distress Head: normocephalic, Atraumatic Eyes: normal inspection, EOMI Neck: supple, Trachea midline Respiratory/Chest: Normal breath sounds, no wheezing, occ b/l crackles noted, No accessory muscle use Cardiovascular: S1, S2, No murmur, tachycardia Abdomen/GI:Soft, Non tender, Bowel sounds present Extremities/Musculoskeletal:normal inspection, no edema Neurologic/Psych:AAOX3, grossly no focal neurological deficits Skin: normal color, warm Results & Data Results & Data Vital Signs (Past 12 Hours) Vital Signs Temp Pulse Pulse Resp BP BP Pulse Ox 12/29/24 11:05 92 H 18 91 12/29/24 10:56 36.8 C 75 18 137/75 91 12/29/24 08:05 12/29/24 07:32 89 18 93 12/29/24 07:22 80 12/29/24 07:18 36.9 C 74 18 158/75 H 91 12/29/24 03:56 36.7 C 91 H 14 151/85 H 92 O2 Del Method 12/29/24 11:05 Room Air 12/29/24 10:56 Room Air 12/29/24 08:05 Room Air 12/29/24 07:32 Room Air 12/29/24 07:22 12/29/24 07:18 Room Air 12/29/24 03:56 Room Air
[2024-12-29] MEDS: LANTUS PER UNIT CHARGE SC SCH (20:31)
[2024-12-29] MEDS: OSELTAMIVIR PHOSPHATE SUSP 30 MG/5 ML UDP PO SCH (21:38)
[2024-12-30 06:34] LABS: Hematocrit (blood only) 35.1 % (42.0-52.0); Mean Corpuscular Hgb Conc 34.2 g/dL (32.0-36.0); Mean Corpuscular Volume 84.8 fL (80.0-100.0); Mean Platelet Volume 10.2 fL (9.4-12.4); Platelet Count 223 K/uL (130-400); RDW Coefficient of Variation 13.2 % (11.5-14.5); RDW Standard Deviation 40.9 fL (36.4-46.3); Red Blood Count 4.14 M/uL (4.70-6.10); White Blood Count 7.93 K/ul (4.8-10.8)
[2024-12-30 06:42] LABS: Calcium 8.7 mg/dl (8.6-10.3); Creatinine Clr Calc Pharmacy 38.7 ml/min; Magnesium 1.9 mg/dl (1.7-2.4); Phosphorus 4.1 mg/dl (2.5-4.9); Potassium 4.1 mmol/L (3.5-5.1)
[2024-12-30 07:05] VITALS: O2SAT 90
[2024-12-30 07:55] VITALS: RESP 20; TEMP 97.9
--- NOTE | 2024-12-30 09:38 | Hospitalist Progress Note ---
Date of Service December 30, 2024 Assessment & Plan (1) Diabetes mellitus, type 2: (2) Hypertension: (3) Chronic obstructive pulmonary disease: (4) Influenza A: (5) COPD exacerbation: Plan 74-year-old male with a PMH of COPD, asthma, HTN, HLD, DM2 who presented to the ED on 12/28/2024 with complaints of shortness of breath x 2 days. Found to be flu A positive. He is being managed for the following: Influenza A COPD vs. asthma exacerbation: Chest x-ray without any evidence of pneumonia, neg procalcitonin c/w Tamiflu, continue IV Solu-Medrol twice a day -- to PO taper from rufino, nebulizers as needed Symptomatic treatment, continue home Advair -c/w add doxy orally. He has been feeling much better and denies any symptoms of cough, shortness of breath, fever and/or chills He has been moving around in the room and throughout the hallways without difficulties He will be discharged home this afternoon He was advised to drink more fluid to avoid dehydration Hx HTN/HLD: Continue amlodipine/lisinopril/statin/metoprolol Hx DM2: Hold metformin/glipizide, SSI/consult glycemic pharmacy Expect sugars to be elevated while on IV Solu-Medrol Full code DVT prophylaxis: lovenox Admission and Anticipated Discharge Date Admission Date: December 28, 2024 Subjective 12/30/2024 The patient was seen and examined in the in medical telemetry unit He has been feeling much better and denies any cough and/or shortness of breath at rest Denies any fever and/or chills He has been ambulating in the room and in the hallways without any difficulties He wants to go home this afternoon Review of Systems Review of Systems: All systems reviewed and are unremarkable except as noted below Physical Exam Physical Exam: Lying in bed without any acute distress Constitutional: well developed, well nourished and average body habitus; not ill appearing Eyes: PERRL, conjunctivae normal, anicteric sclerae ENMT: external ear and nose normal, oropharynx normal Neck: trachea midline, no thyromegaly Respiratory: no respiratory distress Auscultation: lungs clear to auscultation bilaterally Cardiovascular: Rate/Rhythm: regular rate and regular rhythm; not tachycardic Heart Sounds: normal S1 and normal S2; no murmur Gastrointestinal (Abdomen): Inspection/Auscultation: normal bowel sounds; abdomen not distended Percussion/Palpation: abdomen soft; abdomen nontender Musculoskeletal: No acute arthritis involving any of the joint Neurologic: normal touch/pain/proprioception and moves all extremities; no focal motor deficits Psychiatric: A+Ox3, euthymic affect Lymphatic: no cervical or axillary lymphadenopathy Results & Data Results & Data Vital Signs (Past 12 Hours) Vital Signs Temp Pulse Pulse Resp BP BP Pulse Ox 12/30/24 08:57 78 12/30/24 07:54 36.6 C 89 20 144/77 H 90 12/30/24 07:24 12/30/24 07:05 80 16 90 12/30/24 04:03 36.5 C 84 20 132/73 91 12/29/24 22:40 36.5 C 83 18 119/67 92 12/29/24 21:46 88 O2 Del Method 12/30/24 08:57 12/30/24 07:54 Room Air 12/30/24 07:24 Room Air 12/30/24 07:05 Room Air 12/30/24 04:03 Room Air 12/29/24 22:40 Room Air 12/29/24 21:46 Laboratory Results Short CBC 12/30/24 Range/Units 06:13 WBC 7.93 (4.8-10.8) K/ul Hgb 12.0 L (14.0-18.0) g/dl Hct 35.1 L (42.0-52.0) % Plt Count 223 (130-400) K/uL BMP 12/30/24 06:13 Sodium 138 Potassium 4.1 Chloride 107 Carbon Dioxide 25 BUN 40 H Creatinine 1.43 H Glucose 169 H Calcium 8.7 Medications Administered Current Inpatient Medications Acetaminophen (Acetaminophen 325 Mg Tab) 650 mg PO Q4H PRN PRN Reason: pain/fever Stop: 01/27/25 14:22 Amlodipine Besylate (Amlodipine Besylate 5 Mg Tab) 10 mg PO QAM [facility]IS Stop: 01/27/25 17:29 Last Admin: 12/30/24 07:55 Dose: 10 mg Atorvastatin Calcium (Atorvastatin 10 Mg Tab) 10 mg PO HS SOLIS Stop: 01/27/25 20:59 Last Admin: 12/29/24 20:29 Dose: 10 mg Dextrose (Dextrose 50% 50 Ml Syringe) 25 - 50 ml IV UD PRN; Protocol PRN Reason: Hypoglycemia Protocol Stop: 01/27/25 14:22 Doxycycline Hyclate (Doxycycline Hyclate 100 Mg Cap) 100 mg PO BID [facility] Stop: 01/02/25 20:59 Last Admin: 12/30/24 07:55 Dose: 100 mg Enoxaparin Sodium (Enoxaparin Inj 40 Mg/0.4 Ml Syr) 40 mg SQ QAM [facility] Stop: 01/28/25 08:59 Last Admin: 12/30/24 07:55 Dose: 40 mg Ferrous Sulfate (Ferrous Sulfate 325 Mg Tab) 325 mg PO DAILY [facility] Stop: 01/28/25 08:59 Last Admin: 12/30/24 07:55 Dose: 325 mg Fluticasone/Vilanterol (Fluticasone/Vilanterol 200/25mcg 14 Puffs/Inhaler) 1 puffs INH DAILY [facility] Stop: 01/28/25 12:44 Last Admin: 12/30/24 07:55 Dose: 1 puffs Glucagon (Glucagon For Inj 1 Mg Vial) 1 mg SQ UD PRN; Protocol PRN Reason: Hypoglycemia Protocol Stop: 01/27/25 14:22 Glucose (Glucose 40% Gel 15 Gm Tube) 15 - 30 gm PO UD PRN; Protocol PRN Reason: Hypoglycemia Protocol Stop: 01/27/25 14:22 Glucose (Glucose 10 Tab/Tube) 4 - 8 tab PO UD PRN; Protocol PRN Reason: Hypoglycemia Protocol Stop: 01/27/25 14:22 Guaifenesin/Dextromethorphan (Guaifenesin/Dextrom Syrup 200mg/20mg 10ml Udc) 10 ml PO Q6H PRN PRN Reason: Cough Stop: 01/27/25 14:22 Methylprednisolone 40 mg/ (Syringe) 0.64 mls @ 1.5 mls/min IV BID [facility] Stop: 01/28/25 08:59 Last Admin: 12/30/24 07:55 Dose: 1.5 mls/min Insulin Aspart (Insulin Aspart Per Unit Charge) 0 units SC ACHS [facility] Stop: 01/27/25 14:44 Last Admin: 12/30/24 08:40 Dose: 4 units Levalbuterol HCl (Levalbuterol Hcl 0.63 Mg/3 Ml Neb) 0.63 mg NEB QIDR [facility]; Protocol Stop: 01/27/25 14:59 Last Admin: 12/30/24 07:05 Dose: 0.63 mg Lisinopril (Lisinopril 20 Mg Tab) 20 mg PO BID [facility] Stop: 01/27/25 20:59 Last Admin: 12/30/24 07:55 Dose: 20 mg Metoprolol Succinate (Metoprolol Succ 50mg Ext Rel Tab) 50 mg PO HS [facility] Stop: 01/27/25 20:59 Last Admin: 12/29/24 20:29 Dose: 50 mg Miscellaneous (Carbohydrates For Hypoglycemia ) 15 - 30 gm PO UD PRN PRN Reason: Hypoglycemia Protocol Stop: 01/27/25 14:22 Miscellaneous Information (Pharmacy Glycemic Mgmt Consult) 1 each N/A UD PRN PRN Reason: Consult Stop: 01/27/25 14:22 Multivitamins (Multivitamin Tab) 1 tab PO DAILY [facility] Stop: 01/28/25 08:59 Last Admin: 12/30/24 07:55 Dose: 1 tab Oseltamivir Phosphate (Oseltamivir Phosphate Susp 30 Mg/5 Ml Udp) 30 mg PO BID [facility] Stop: 01/03/25 20:59 Last Admin: 12/30/24 07:59 Dose: 30 mg
[2024-12-30 09:56] VITALS: BP 132/73; PULSE 113
--- NOTE | 2024-12-31 09:00 | Discharge Summary ---
Date of Service December 31, 2024 Admission HPI Per Admitting Provider The patient is a 74-year-old male with a past medical history of COPD, asthma HTN, HLD, PAWAN, DM2 who presents to the ED on 12/28/2024 with complaints of increasing shortness of breath that started about 2 days ago. Reports home meds not helping. Reported issues being able to sleep and eat. Pt reports the dry cough and SOB started yesterday. Denies fevers - reports chills. Reports sob even with rest. Denies any chest pain or tightness. Denies n/v/d or abdominal pain. Reports using rescue inhalers at home since yesterday with no improvement. 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 Reports not eating anything over the past few days due to lack of appetite. On arrival to the ED, labs remarkable for hemoglobin 13.6, glucose 245, alk phos 112, troponin 27, 33, Respiratory panel + flu A EKG showed sinus tachycardia with fusion complexes, QTc 475 Chest x-ray showed: 1. Slightly hyperinflated both lung with flattening of both hemidiaphragm suggesting mild emphysematous changes. 2. Bilateral mainly basal increase interstitial lung markings suggesting chronic lung changes., Advise CT for further evaluation if clinically warranted. The patient was given Solu-Medrol and nebulizer in the ED and will be admitted for further management of COPD exacerbation influenza A Admission Exam Per Admitting Provider Constitutional: WD/WN, vitals as above Eyes: PERRL, conjunctivae normal, anicteric sclerae ENMT: external ear and nose normal, oropharynx normal Neck: trachea midline, no thyromegaly Respiratory: normal respiratory effort, lungs clear to auscultation (no wheezing on exam, clear bilaterally ) Cardiovascular: RRR, no murmur, no edema Gastrointestinal (Abdomen): normal bowel sounds, soft, nontender, no hepatosplenomegaly Musculoskeletal: no cyanosis or clubbing, extremities motor strength 5/5 Skin: no rashes, warm and dry Neurologic: PERRL, EOMI, accommodation nl, no face palsy, no dysarthria Psychiatric: A+Ox3, euthymic affect Lymphatic: no cervical or axillary lymphadenopathy Principal Diagnosis Influenza A, COPD/asthma exacerbation Discharge Exam Lying in bed without any acute distress Constitutional well developed, well nourished and average body habitus; not ill appearing Eyes PERRL, conjunctivae normal, anicteric sclerae ENMT external ear and nose normal, oropharynx normal Neck trachea midline, no thyromegaly Respiratory no respiratory distress Auscultation: lungs clear to auscultation bilaterally Cardiovascular Rate/Rhythm: regular rate and regular rhythm; not tachycardic Heart Sounds: normal S1 and normal S2; no murmur Gastrointestinal (Abdomen) Inspection/Auscultation: normal bowel sounds; abdomen not distended Percussion/Palpation: abdomen soft; abdomen nontender Neurologic normal touch/pain/proprioception and moves all extremities; no focal motor deficits Psychiatric A+Ox3, euthymic affect Lymphatic no cervical or axillary lymphadenopathy Discharge Data Allergies Allergy/AdvReac Type Severity Reaction Status Date / Time No Known Allergies Allergy Verified 12/28/24 10:19 Consultations 12/28/24 11:23 ED Decision to Admit Stat Hospital Course (1) Diabetes mellitus, type 2: (2) Hypertension: (3) Chronic obstructive pulmonary disease: (4) Influenza A: (5) COPD exacerbation: Plan 74-year-old male with a PMH of COPD, asthma, HTN, HLD, DM2 who presented to the ED on 12/28/2024 with complaints of shortness of breath x 2 days. Found to be flu A positive. He is being managed for the following: Influenza A COPD vs. asthma exacerbation: Chest x-ray without any evidence of pneumonia, neg procalcitonin c/w Tamiflu, continue IV Solu-Medrol twice a day -- to PO taper from rufino, nebulizers as needed Symptomatic treatment, continue home Advair -c/w add doxy orally. He has been feeling much better and denies any symptoms of cough, shortness of breath, fever and/or chills He has been moving around in the room and throughout the hallways without difficulties He will be discharged home this afternoon He was advised to drink more fluid to avoid dehydration Hx HTN/HLD: Continue amlodipine/lisinopril/statin/metoprolol Hx DM2: Hold metformin/glipizide, SSI/consult glycemic pharmacy Expect sugars to be elevated while on IV Solu-Medrol Full code DVT prophylaxis: lovenox Total Time Total Time Spent Total Time Spent (In Minutes): 35 minutes Discharge Plan Discharge Items Patient Disposition: Home - Self-Care Reason For Visit: SOB, FLU A Discharge Diagnosis: Influenza A, COPD/asthma exacerbation Condition on Discharge: Good Activity: Resume your previous activity Non-emergency contact: Primary Care Provider Call non-emergency contact if: you have any medication questions and your symptoms worsen Follow-up/Referrals: Gali Whittaker [Primary Care Provider] - 01/05/25 10:00 am () Diet: Carb Consistent or DM2 and Heart Healthy Addtl Attending Provider Instructions: Please take precautions to avoid falls Take your medications as advised Try to drink more fluid Please keep appointments with your healthcare providers Pending Studies at Discharge: No Stand-Alone Forms: [employer], Smoking Cessation Medications and DC Order Prescriptions: New doxycycline hyclate 100 mg Capsule 100 mg PO BID Qty: 10 0RF oseltamivir [Tamiflu] 6 mg/mL Suspension For Reconstitution 30 mg PO BID Qty: 8 0RF prednisone 20 mg tablet 40 mg PO DAILY Qty: 8 0RF Continued fluticasone propion-salmeterol [Advair Diskus] 250-50 mcg/dose Blister With Device 1 inh INHALATION BID lisinopril 20 mg Tablet 20 mg PO BID multivitamin Tablet 1 tab PO DAILY metformin 500 mg tablet 500 mg PO BID atorvastatin 20 mg tablet 10 mg PO HS metoprolol succinate 50 mg tablet extended release 24 hr 50 mg PO HS Rx Instructions: Per pt he recently started taking it only at bedtime. glipizide 5 mg tablet extended release 24hr 5 mg PO QAM amlodipine 10 mg tablet 10 mg PO QAM ferrous sulfate 325 mg (65 mg iron) Tablet 325 mg PO DAILY Discharge Orders: Discharge Order (Routine); Ordered 12/30/24 Ordered By: Isabel Crawford/Other Patient Handouts: High Blood Sugar (Hyperglycemia), Managing Type 2 Diabetes, How to Check Your Blood Sugar Admission Data Admit Date/Time: 12/28/24 11:13 Attending Provider: Isabel Orellana Admit Provider: Alexis Gan Primary Care Provider: Gali Whittaker Other Interventions: Discharge Summary Assessment (RN) Last Done: 12/30/24 09:55
== END 2024-12-30 10:54 | disposition home or self-care (01) | DRG 191 ==
LOC: ED 07:18 → EDINP 11:13 → SUATTDRO 11:13 → EDINP 14:23 → 2W 14:33
DX: I16.0 Hypertensive urgency; Z79.84 Long term (current) use of oral hypoglycemic drugs; J10.1 Influenza due to other identified influenza virus with other respiratory manifestations; I24.89 Other forms of acute ischemic heart disease; I10 Essential (primary) hypertension; Z87.891 Personal history of nicotine dependence; E78.5 Hyperlipidemia, unspecified; J44.1 Chronic obstructive pulmonary disease with (acute) exacerbation; E11.9 Type 2 diabetes mellitus without complications; D50.9 Iron deficiency anemia, unspecified